=== PATIENT | female | born 1980 | race Caucasian/White ===

== ENCOUNTER 2017-03-27 17:32 | Emergency (ER) | payer OTHER ==
[~2017-03-27] VITALS: Ht 167.6 cm; Wt 84.8 kg
[~2017-03-27 17:32] MED LIST: ANTIVERT25 MG PO; Dilaudid PO; ENDOCET 5-3251 EACH PO; MOTRIN800 MG PO; Motrin PO; ONDANSETRON ODT4 MG PO; PRENATAL PLUS1 EAC3 PO; PRENATAL1 EACH PO; PROMETHAZINE HC25 M1 PO; ROBITUSSIN DM118 ML PO; ZANTAC150 MG PO; ZITHROMAX Z-PA250 MG PO; ZOFRAN ODT8 MG PO
[2017-03-27 17:57] LABS: HEMATOCRIT 39.6 % (36.0-46.0); MCH 29.8 PG (29.0-34.0); MCHC 34.3 G/DL (30.0-36.0); MCV 86.7 FL (83-99); MEAN PLAT.VOLUME 9.8 uM^3 (9.5-12.4); PLATELET COUNT 291 K/uL (156-360); RBC DIS.WIDTH-CV 12.7 % (11.8-14.6); RBC DIS.WIDTH-SD 39.8 % (39-53); RED BLOOD COUNT 4.57 M/uL (3.80-5.20); WHITE BLOOD COUNT 12.3 K/uL (4.1-10.2)
[2017-03-27 18:09] LABS: CHLORIDE 105 mEq/L (99-109); POTASSIUM 4.8 mEq/L (3.7-5.4); SODIUM 137 mEq/L (136-147)
[2017-03-27 18:11] LABS: GLUCOSE 89 mg/dL (70-99)
[2017-03-27 18:12] LABS: ANION GAP 8 MEQ/L (2-14)
[2017-03-27 18:13] LABS: TOTAL BILIRUBIN 0.5 mg/dL (0.0-1.0)
[2017-03-27 18:15] LABS: ALKALINE PHOSPHATASE 118 IU/L (3-129); GFR ESTIMATE (CALCULATED) > 59 mL/min/
[2017-03-27 18:16] LABS: UREA NITROGEN (BUN) 12 mg/dL (9-23)
[2017-03-27 18:18] LABS: LIPASE 14 U/L (1.0-51.0)
[2017-03-27 18:27] LABS: QUANTITATIVE HCG < 4.0 MIU/ML
[2017-03-27] MEDS ORDERED: DEXTROAMP-AMPHE25 MG PO (19:01)
[2017-03-27 19:33] LABS: ADD MIUA? NO; BILIRUBIN NEGATIVE; BLOOD NEGATIVE; COLOR YELLOW ((YELLOW)); GLUCOSE (STRIP) NEGATIVE; KETONES NEGATIVE; LEUKOCYTES NEGATIVE; NITRITE NEGATIVE; PROTEIN (STRIP) NEGATIVE; SPECIFIC GRAVITY 1.012 (1.000-1.030); UCUL ADDED? NO; UROBILINOGEN 0.2 MG/DL (0.2-1.0)
[2017-03-27 20:45] LABS: ABS NEUTROPHIL COUNT 8.8; ANISOCYTOSIS 1+; ATYPICAL LYMPHOCYTE 6.1 %; EOSINOPHIL ABS CT 0; LYMPHOCYTES 16.7 % (15.0-45.0); MICROCYTOSIS 1+; PLAT.SUFFICIENCY ADEQUATE; SEG.NEUTROPHILS 71.9 % (46.0-76.0)
[2017-03-27] MEDS ORDERED: NORCO 7.5/321 TABLET PO (21:38)
[2017-03-27] MEDS ORDERED: MOTRIN800 MG PO (21:38)
[2017-03-27] MEDS ORDERED: ZOFRAN ODT4 MG PO (21:38)
[2017-03-27 22:22] VITALS: BP 119/64
== END 2017-03-27 22:24 | disposition home or self-care (01) ==
LOC: EME 17:32
DX: K55.069 Acute infarction of intestine, part and extent unspecified (principal)
CPT/HCPCS: 74177; 76856; 80053; 81003; 83690; 84702; 85007; 85027; 93975; 99281; 99285; J1885; J2405; J3010; J7030